=== PATIENT | female | born 1955 | race Caucasian/White ===

== ENCOUNTER 2018-04-22 15:14 | Observation (INO) ==
--- NOTE | 2018-04-22 15:58 | ED ---
HPI General Chief complaint: Recheck/Abnormal Lab/Rx Stated complaint: R arm and pain on R side of head Time Seen by Provider: 04/22/18 15:55 Source: patient Mode of arrival: ambulatory Limitations: no limitations History of Present Illness HPI narrative: 62-year-old female patient with history of Enlarged thyroid nodules, currently being investigated by primary care doctor and endocrinology, presents to the ER today because she states that she is having 2 days history of pain in her right upper back area, tingling down her right arm, and then this morning started having pain and tingling down her left arm, for which she had talked her primary care doctor. She states she also had a chest discomfort that lasted about a few minutes and then went away. She is not having chest discomfort right now. She states that her primary care doctor had evaluated her in the office, did not EKG on her and was concerned about EKG changes seen today that was not seen previously. Patient states that the doctor had sent her in to be evaluated further. Related Data Home Medications Medication Instructions Recorded Confirmed No Known Home Medications 04/22/18 04/22/18 Allergies Allergy/AdvReac Type Severity Reaction Status Date / Time codeine Allergy Intermediate abdominal Verified 04/22/18 15:53 pain Sulfa (Sulfonamide Allergy Intermediate Rash Verified 04/22/18 15:53 Antibiotics) Review of Systems ROS: all other systems reviewed are negative [facility] Medical History Medical History Enlarged thyroid gland (Acute) Surgical History Surgical History No history of previous surgery (Acute) Social History Social History Substance History: No History of Abuse Smoking Status: Never smoker How Often Do You Have a Drink Containing Alcohol: Never Recent Travel in [facility] within the Last 8 Weeks: No Recent Out of Country Travel within the Last 8 Weeks: No Immunization History Tetanus Immunization: Unsure Exam Narrative Exam Narrative: GENERAL: Well-developed elderly white female patient currently and no acute distress. Awake and oriented x3. SKIN: Focused skin assessment warm/dry. HEAD: Atraumatic. Normocephalic. EYES: Pupils equal and round. No scleral icterus. No injection or drainage. ENT: No nasal bleeding or discharge. Mucous membranes pink and moist. NECK: Trachea midline. No JVD. Supple. CARDIOVASCULAR: Regular rate and rhythm. No murmur appreciated.Pulses are present and equal bilaterally. RESPIRATORY: No accessory muscle use. Clear to auscultation. Breath sounds equal bilaterally. GASTROINTESTINAL: Abdomen soft, non-tender, nondistended. Hepatic and splenic margins not palpable. MUSCULOSKELETAL: No obvious deformities. No clubbing. No cyanosis. No edema. NEUROLOGICAL: Awake and alert. No obvious cranial nerve deficits. Motor grossly within normal limits. Normal speech. PSYCHIATRIC: Appropriate mood and affect; insight and judgment normal. Course Initial Documented Vital Signs Temperature 97.8 F 04/22/18 15:24 Pulse Rate 61 04/22/18 15:24 Respiratory Rate 18 04/22/18 15:24 Blood Pressure 135/60 04/22/18 15:24 Pulse Oximetry 96 04/22/18 15:24 Last Documented Vital Signs Temperature 97.8 F 04/22/18 15:24 Pulse Rate 57 L 04/22/18 15:56 Respiratory Rate 13 04/22/18 15:53 Blood Pressure 151/77 H 04/22/18 15:53 Pulse Oximetry 98 04/22/18 15:56 Medical Decision Making MDM Narrative Medical decision making narrative: Patient's EKG is significant for significant bradycardia. Lab work was otherwise fairly unremarkable. Chest x-ray was unremarkable as well. At this point, my plan would be to admit her to chest pain center for further evaluation. Medical Screen Exam Complete: Yes Emergency Medical Condition: Yes Differential Diagnosis Differential Diagnosis: Atypical chest pain versus angina versus muscular skeletal Lab Data Result diagrams: 04/22/18 16:20 04/22/18 16:20 Lab Results 04/22/18 04/22/18 04/22/18 Range/Units 16:20 16:20 16:20 WBC 5.9 (4.0-11.0) th/mm3 RBC 4.46 (4.00-5.30) mil/mm3 Hgb 14.0 (11.6-15.3) gm/dL Hct 41.1 (35.0-46.0) % MCV 92.1 (80.0-100.0) fL MCH 31.3 (27.0-34.0) pg MCHC 33.9 (32.0-36.0) % RDW 13.2 (11.6-17.2) % Plt Count 242 (150-450) th/mm3 MPV 7.6 (7.0-11.0) fL Neut % (Auto) 66.9 (16.0-70.0) % Lymph % (Auto) 25.0 (9.0-44.0) % Walker % (Auto) 6.9 (0.0-8.0) % Eos % (Auto) 0.9 (0.0-4.0) % Baso % (Auto) 0.3 (0.0-2.0) % Neut # (Auto) 3.9 (1.8-7.7) th/mm3 Lymph # (Auto) 1.5 (1.0-4.8) th/mm3 [place] # (Auto) 0.4 (0.0-0.9) th/mm3 Eos # (Auto) 0.1 (0.0-0.4) th/mm3 Baso # (Auto) 0.0 (0.0-0.2) th/mm3 WBC Differential . Differential Comment Auto diff final PT 10.4 (9.8-11.6) sec INR 1.0 Ratio APTT 27.3 (24.3-30.1) sec D-Dimer Quant (PE/DVT) Less than 0.19 (0.00-0.50) mg/L FEU Sodium 142 (136-145) meq/L Potassium 4.1 (3.5-5.1) meq/L Chloride 106 (98-107) meq/L Carbon Dioxide 26.6 (21.0-32.0) meq/L Anion Gap 9 (5-15) meq/L BUN 12 (7-18) mg/dL Creatinine 0.72 (0.50-1.00) mg/dL Estimated GFR 82 L (>89) mL/min Random Glucose 86 (74-106) mg/dL Calcium 8.4 L (8.5-10.1) mg/dL Total Bilirubin 0.8 (0.2-1.0) mg/dL AST 17 (15-37) U/L ALT 22 (10-53) U/L Alkaline Phosphatase 77 (45-117) U/L Troponin I Less than 0.02 L (0.02-0.05) ng/mL Total Protein 6.8 (6.4-8.2) g/dL Albumin 3.5 (3.4-5.0) g/dL TSH 0.639 (0.358-3.740) uIU/mL Free T4 0.90 (0.76-1.46) ng/dL Free T3 2.82 (2.18-3.98) pg/mL Imaging Data Attestation: I personally reviewed and interpreted this imaging study as follows : Radiologist's impression: Chest X-Ray 04/22/18 15:56 CONCLUSION: Density in the right cardiophrenic angle likely prominent fat pad. Atelectasis/ infiltrate cannot be excluded in the absence of prior studies. ECG Data Attestation: I personally reviewed and interpreted this ECG as follows: Interpretation: Sinus bradycardia at a rate of 50 bpm. No signs of acute ST elevations or depressions. Discharge Plan Discharge Disposition Patient Disposition: 30 Still Patient Discharge Condition Condition: Stable Discharge Details Anticipated Discharge Date: 04/22/18 Diagnosis: Atypical chest pain Physicians Team ED Provider: Aparna Hartman Primary Care Provider: UNKNOWN, Rxs /Orders / Referrals /Forms Prescriptions: No Action No Known Home Medications RF: 0 Discharge Interventions Interventions: Vital Signs Last Done: 04/22/18 15:53 Status ED Status: With Doctor
[2018-04-22 16:35] LABS: Baso % (Auto) 0.3 % (0.0-2.0); Eos # (Auto) 0.1 th/mm3 (0.0-0.4); Eos % (Auto) 0.9 % (0.0-4.0); Hematocrit 41.1 % (35.0-46.0); Lymph # (Auto) 1.5 th/mm3 (1.0-4.8); Mean Corpuscular HGB Conc 33.9 % (32.0-36.0); Mean Corpuscular Hemoglobin 31.3 pg (27.0-34.0); Mean Corpuscular Volume 92.1 fL (80.0-100.0); Mean Platelet Volume 7.6 fL (7.0-11.0); Mono # (Auto) 0.4 th/mm3 (0.0-0.9); Mono % (Auto) 6.9 % (0.0-8.0); Neut # (Auto) 3.9 th/mm3 (1.8-7.7); Neut % (Auto) 66.9 % (16.0-70.0); Platelet Count 242 th/mm3 (150-450); Red Blood Count 4.46 mil/mm3 (4.00-5.30); Red Cell Distribution Width 13.2 % (11.6-17.2); White Blood Count 5.9 th/mm3 (4.0-11.0)
[2018-04-22 16:48] LABS: Activated Partial Thrombo Time 27.3 sec (24.3-30.1); Prothrombin Time 10.4 sec (9.8-11.6)
[2018-04-22 17:04] LABS: Alanine Aminotransferase 22 U/L (10-53); Albumin 3.5 g/dL (3.4-5.0); Anion Gap 9 meq/L (5-15); Aspartate Aminotransferase 17 U/L (15-37); Blood Urea Nitrogen 12 mg/dL (7-18); Calcium 8.4 mg/dL (8.5-10.1); Carbon Dioxide 26.6 meq/L (21.0-32.0); Chloride 106 meq/L (98-107); Glomerular Filtration Rate 82 mL/min (>89); Glucose,Random 86 mg/dL (74-106); Potassium 4.1 meq/L (3.5-5.1); Sodium 142 meq/L (136-145)
[2018-04-22 17:14] LABS: Alkaline Phosphatase 77 U/L (45-117); Thyroid Stimulating Hormone 0.639 uIU/mL (0.358-3.740); Total Protein 6.8 g/dL (6.4-8.2); Triiodothyronine (T3) Free 2.82 pg/mL (2.18-3.98)
--- NOTE | 2018-04-22 17:34 | XR ---
EXAM DATE: 04/22/2018 3:56 PM EDT AGE/SEX: 62 years / Female INDICATIONS: Right sided chest, arm and jaw pain. CLINICAL DATA: This is the patient's initial encounter. Patient reports that signs and symptoms have been present for 2 days and indicates a pain score of 5/10. MEDICAL/SURGICAL HISTORY: None. Breast augmentation. COMPARISON: No prior exams available for comparison. FINDINGS: A single AP view of the chest demonstrates density noted right cardiophrenic angle. Left lung clear. Heart normal in size The cardiomediastinal contours are unremarkable. Osseous structures are intact. CONCLUSION: Density in the right cardiophrenic angle likely prominent fat pad. Atelectasis/infiltrate cannot be e xcluded in the absence of prior studies. Electronically signed by: Warren Beckett MD 04/22/2018 5:32 PM EDT
[2018-04-22 19:47] LABS: Creatine Kinase 65 U/L (26-192)
[2018-04-22 23:10] LABS: Creatine Kinase 91 U/L (26-192)
[2018-04-23 07:56] VITALS: RESP 18
--- NOTE | 2018-04-23 08:58 | ECG ---
Date Performed: 04/22/2018 Time Performed: 22:21:27 PTAGE: 62 years EKG: Sinus rhythm NORMAL ECG Since PREVIOUS TRACING , no significant change noted DOCTOR: Ashley Atkins Interpretating Date/Time 04/23/2018 08:58:20
--- NOTE | 2018-04-23 09:03 | ECG ---
Date Performed: 04/22/2018 Time Performed: 18:20:15 PTAGE: 62 years EKG: SINUS BRADYCARDIA BORDERLINE ECG Since PREVIOUS TRACING , no significant change noted PREVIOUS TRACIN04/22/2018 15.45 DOCTOR: Ashley Atkins Interpretating Date/Time 04/23/2018 09:02:13
--- NOTE | 2018-04-23 09:03 | ECG ---
Date Performed: 04/22/2018 Time Performed: 15:45:25 PTAGE: 62 years EKG: SINUS BRADYCARDIA BORDERLINE ECG Since PREVIOUS TRACING , no significant change noted PREVIOUS TRACIN06/09/2013 18.18 DOCTOR: Ashley Atkins Interpretating Date/Time 04/23/2018 09:01:46
--- NOTE | 2018-04-23 10:25 | CT ---
EXAM DATE: 04/23/2018 9:45 AM EDT AGE/SEX: 62 years / Female INDICATIONS: Headache CLINICAL DATA: This is the patient's initial encounter. Patient reports that signs and symptoms have been present for 2 days and indicates a pain score of 4/10. MEDICAL/SURGICAL HISTORY: None. None. RADIATION DOSE: 56.35 CTDI (mGy) COMPARISON: No prior exams available for comparison. TECHNIQUE: CT of the head without contrast. Using automated exposure control and adjustment of the mA and/or kV according to patient size, radiation dose was kept as low as reasonably achievable to ob tain optimal diagnostic quality images. DICOM format image data is available electronically for revi ew and comparison. FINDINGS: Cerebrum: The ventricles are normal for age. No evidence of midline shift, mass lesion, hemorrhage or acute infarction. No extraaxial fluid collections are seen. Posterior Fossa: The cerebellum and brainstem are intact. The 4th ventricle is midline. The cerebe llopontine angle is unremarkable. Extracranial: The visualized portion of the orbits is intact. Skull: The calvaria is intact. No evidence of skull fracture. CONCLUSION: 1. Negative CT Head non contrast. . Electronically signed by: Khai Duvall MD 04/23/2018 10:23 AM EDT
--- NOTE | 2018-04-23 10:59 | P.HPCA ---
History of Present Illness Primary Care Physician: UNKNOWN Chief Complaint: Headache, right arm paresthesias History of Present Illness: This is a 62-year-old female that presents to ED via private vehicle at the request of her primary care physician with initial complaint of having discomfort in her right shoulder for 2 days basic constantly. Numbness associated with any change in position. Then yesterday she woke up with numbness tingling weakness in her right arm and headache. The symptoms lasted about 30 minutes. She went to her PCP and was advised to come to the ED to be evaluated for a TIA. Initially has not been discussing chest discomfort and first time questioning she denied having chest pain but then after further questioning she did have a discomfort but she states is in the right side of her chest when she was having the other issues. Cannot recall prior cardiac workup. Cannot recall prior neurologic workup. States that her PCP is evaluating enlarged thyroid nodules at this time. Currently has no symptoms. States she has history of enlarged thyroid nodules that are being evaluated by PCP and endocrinology. Denies hypertension, hyperlipidemia, diabetes, and known CAD. She does not smoke. Cannot recall family history of CAD. - Diagnosis (1) Atypical chest pain (2) Paresthesias (3) Thyroid nodule Review of Systems General: Patient denies fevers, chills, and recent travel. HEENT: Patient denies headache, sore throat, difficulty swallowing. Cardiovascular: Has the chest discomfort as mentioned above. Denies sensation of heart beating rapidly or irregularly. No syncope. Denies diaphoresis. Respiratory: Denies shortness of breath or inspirational chest discomfort. Denies coughing wheezing or hemoptysis. GI: Patient denies nausea, vomiting, diarrhea, abdominal pain, bloody stools. Musculoskeletal: Patient denies joint pain or edema. Denies calf pain or edema. Neurovascular: Planes of right arm numbness tingling and weakness for about 30 minutes. Also had a right sided headache for also 30 minutes. Denies visual changes. Denies any difficulty in speech. Denies seizure activity. Denies any recent head trauma. Denies fecal urinary incontinence. Denies neck pain or stiffness. Endocrine: Denies polyuria and polydipsia. Hematologic: Denies easy bruising. Skin: Denies rash or itching. PMFSH - History History Provided By: Patient - Medical History Medical History: Medical History (Last Reviewed 04/22/18 @ 15:57 by Aparna Hartman MD) Enlarged thyroid gland - Surgical History Surgical History: Surgical History (Last Reviewed 04/22/18 @ 15:57 by Aparna Hartman MD) No history of previous surgery - Tobacco History Second Hand Smoke Exposure: No Tobacco Use In Past 30 Days: No Smoking Status: Never smoker - Alcohol History How Often Do You Have a Drink Containing Alcohol: Monthly or less - Substance Use History Substance History: No History of Abuse - Travel History Recent Travel in the [place] Within the Last 8 Weeks: No Recent Travel Out of the Country Within the Last 8 Weeks: No - Immunization History Tetanus Immunization: Unsure Medications and Allergies Active Medications: Active Medications Sodium Chloride (Ns Flush) 2 ml IV.FLUSH UNSCH PRN PRN Reason: FLUSH AFTER USING IV ACCESS Sodium Chloride (Ns Flush) 2 ml IV.FLUSH BID YENNY Last Admin: 04/23/18 09:13 Dose: 2 ml Sodium Chloride (Ns Flush) 2 ml IV.FLUSH PRN PRN PRN Reason: FLUSH AFTER USING IV ACCESS Allergies Allergy/AdvReac Type Severity Reaction Status Date / Time codeine Allergy Intermediate abdominal Verified 04/22/18 15:53 pain Sulfa (Sulfonamide Allergy Intermediate Rash Verified 04/22/18 15:53 Antibiotics) Home Medications Medication Instructions Recorded Confirmed Type No Known Home Medications 04/22/18 04/22/18 History Exam Vital signs: Vital Signs 04/22/18 15:24 04/22/18 15:53 04/22/18 15:56 Temperature 97.8 F Pulse Rate 61 64 57 L Respiratory Rate 18 13 Blood Pressure 135/60 151/77 H Pulse Oximetry 96 96 98 04/22/18 17:43 04/22/18 20:00 04/23/18 00:00 Temperature 98.3 F 98.3 F Pulse Rate 69 59 L 59 L Respiratory Rate 18 16 16 Blood Pressure 139/62 107/54 L 107/54 L Pulse Oximetry 100 97 04/23/18 05:10 04/23/18 07:55 04/23/18 08:00 Temperature 97.7 F 97.7 F Pulse Rate 52 L 55 L 53 L Respiratory Rate 16 18 Blood Pressure 107/65 115/56 L Pulse Oximetry 94 L 04/23/18 09:00 Temperature Pulse Rate 53 L Respiratory Rate Blood Pressure Pulse Oximetry Intake & Output 04/22/18 04/23/18 04/23/18 18:59 06:59 18:59 Weight 79.379 kg 79.379 kg Other: # Voids 2 Date of Last Bowel Movement 04/22/18 04/23/18 Weight On Admission 79.379 kg Narrative: GENERAL: This is a well-nourished, well-developed patient, in no apparent distress. Patient speaks in clear complete sentences. Patient is pleasant. HEENT: Head is atraumatic and normocephalic. Neck is supple without lymphadenopathy and trachea is midline. No JVD or carotid bruits. CARDIOVASCULAR: Regular rate and rhythm without murmurs, gallops, or rubs. RESPIRATORY: Clear to auscultation. Breath sounds equal bilaterally. No wheezes , rales, or rhonchi. Chest wall is nontender. No use of accessory muscles. GASTROINTESTINAL: Abdomen is nontender, nondistended. Abdomen soft. No obvious pulsatile mass or bruit. No CVA tenderness. Strong femoral pulses bilaterally. Normal bowel sounds in all quadrants. MUSCULOSKELETAL: Patient is moving upper and lower extremities freely. No calf tenderness or edema, no Homans sign. Strong pulses in upper and lower extremities. NEUROLOGICAL: Patient is alert and oriented. Cranial nerves 2-12 are grossly intact. 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 No focal deficits and speech is clear. SKIN: No rash and turgor is normal. Results 04/22/18 16:20 04/22/18 16:20 Cardiac Enzymes 04/22/18 04/22/18 04/22/18 Range/Units 16:20 18:20 22:04 AST 17 (15-37) U/L Troponin I Less than 0.02 L Less than 0.02 L Less than 0.02 L (0.02-0.05) ng/mL Coagulation 04/22/18 Range/Units 16:20 PT 10.4 (9.8-11.6) sec APTT 27.3 (24.3-30.1) sec CBC 04/22/18 Range/Units 16:20 WBC 5.9 (4.0-11.0) th/mm3 RBC 4.46 (4.00-5.30) mil/mm3 Hgb 14.0 (11.6-15.3) gm/dL Hct 41.1 (35.0-46.0) % Plt Count 242 (150-450) th/mm3 Neut # (Auto) 3.9 (1.8-7.7) th/mm3 Lymph # (Auto) 1.5 (1.0-4.8) th/mm3 [place] # (Auto) 0.4 (0.0-0.9) th/mm3 Eos # (Auto) 0.1 (0.0-0.4) th/mm3 Baso # (Auto) 0.0 (0.0-0.2) th/mm3 Comprehensive Metabolic Panel 04/22/18 Range/Units 16:20 Sodium 142 (136-145) meq/L Potassium 4.1 (3.5-5.1) meq/L Chloride 106 (98-107) meq/L Carbon Dioxide 26.6 (21.0-32.0) meq/L BUN 12 (7-18) mg/dL Creatinine 0.72 (0.50-1.00) mg/dL Calcium 8.4 L (8.5-10.1) mg/dL AST 17 (15-37) U/L ALT 22 (10-53) U/L Alkaline Phosphatase 77 (45-117) U/L Total Protein 6.8 (6.4-8.2) g/dL Albumin 3.5 (3.4-5.0) g/dL Intake and Output 04/22/18 04/23/18 04/23/18 22:59 06:59 14:59 Other: # Voids 2 Date of Last Bowel Movement 04/22/18 04/23/18 Weight 79.379 kg 79.379 kg Weight On Admission 79.379 kg - Imaging and Cardiology Imaging: Impressions Chest X-Ray 04/22/18 15:56 CONCLUSION: Density in the right cardiophrenic angle likely prominent fat pad. Atelectasis/ infiltrate cannot be excluded in the absence of prior studies. Head CT 04/23/18 00:00 CONCLUSION: 1. Negative CT Head non contrast. . EKG interpretations - EKG EKG shows: sinus rhythm (EKGs are sinus rhythm without significant ST segment depressions or elevations.) Caprini VTE Risk Assessment Caprini VTE Risk Assessment: Moderate/High Risk (score >= 2) Caprini Risk Assessment Model: Point Value = 1 Point Value = 2 Point Value = 3 Point Value = 5 Age 41-60 Minor surgery BMI > 25 kg/m2 Swollen legs Varicose veins or History of unexplained or recurrent spontaneous Oral contraceptives or hormone replacement Sepsis (< 1 month) Serious lung disease, including pneumonia (< 1 month) Abnormal pulmonary function Acute myocardial infarction Congestive heart failure (< 1 month) History of inflammatory bowel disease Medical patient at bed rest Age 61-74 Arthroscopic surgery Major open surgery (> 45 min) Laparoscopic surgery (> 45 min) Malignancy Confined to bed (> 72 hours) Immobilizing plaster cast Central venous access Age >= 75 History of VTE Family history of VTE Factor V Leiden Prothrombin [id number] Lupus anticoagulant Anticardiolipin antibodies Elevated serum homocysteine Heparin-induced thrombocytopenia Other congenital or acquired thrombophilia Stroke (< 1 month) Elective arthroplasty Hip, pelvis, or leg fracture Acute spinal cord injury (< 1 month) Prophylaxis Regimen: Total Risk Factor Score Risk Level Prophylaxis Regimen 0-1 Low Early ambulation 2 Moderate Order ONE of the following: *Sequential Compression Device (SCD) *Heparin 5000 units SQ BID 3-4 Higher Order ONE of the following medications: *Heparin 5000 units SQ TID *Enoxaparin/Lovenox 40 mg SQ daily (WT < 150 kg, CrCl > 30 mL/min) *Enoxaparin/Lovenox 30 mg SQ daily (WT < 150 kg, CrCl > 10-29 mL/min) *Enoxaparin/Lovenox 30 mg SQ BID (WT < 150 kg, CrCl > 30 mL/min) AND/OR *Sequential Compression Device (SCD) 5 or more Highest Order ONE of the following medications: *Heparin 5000 units SQ TID (Preferred with Epidurals) *Enoxaparin/Lovenox 40 mg SQ daily (WT < 150 kg, CrCl > 30 mL/min) *Enoxaparin/Lovenox 30 mg SQ daily (WT < 150 kg, CrCl > 10-29 mL/min) *Enoxaparin/Lovenox 30 mg SQ BID (WT < 150 kg, CrCl > 30 mL/min) AND *Sequential Compression Device (SCD) Assessment and Plan - Assessment (1) Atypical chest pain Code(s): R07.89 - Other chest pain Status: Acute (2) Paresthesias Code(s): R20.2 - Paresthesia of skin Status: Acute (3) Thyroid nodule Code(s): E04.1 - Nontoxic single thyroid nodule Status: Acute - Plan * Paresthesias: Her symptoms lasted about [address] brain has been ordered and chest pain center and is pending. If negative she will need to follow-up with her PCP for further evaluation. May need cardiology referral for 2D echo, Holter monitor, and carotid ultrasound as the patient states her PCP was concerned about a TIA. * Atypical chest pain: We will get a Jourdan protocol ETT and likely be discharged home if stress test is nonischemic. 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 Patient is stable at this time. She is agreeable to this plan. Patient should return to ED for interval issues. H&P: Quality - VTE Deep Vein Thrombosis/Pulmonary Embolism Present on Admission: No
[2018-04-23] MEDS ORDERED: Aspirin 325 MG Tablet PO SCH (11:00)
[2018-04-23 12:24] VITALS: BP 134/67; PULSE 55; TEMP 97.5; O2SAT 97
[2018-04-23] MEDS ORDERED: Regadenoson Inj 0.4 MG/5 ML Syringe IV.PUSH ONE (13:39)
--- NOTE | 2018-04-23 14:49 | NM ---
EXAM DATE: 04/23/2018 1:31 PM EDT AGE/SEX: 62 years / Female INDICATIONS:Angina. . CLINICAL DATA: This is the patient's initial encounter. Patient reports that signs and symptoms have been present for 1 day and indicates a pain score of 1/10. MEDICAL/SURGICAL HISTORY: None. None. COMPARISON: No prior exams available for comparison. DOSE: 8.2 mCi Tc 99m Myoview at rest 25.8 mCi [id number] at stress 0.4 mg Lexiscan STRESS SYMPTOMS: Dyspnea, head pressure, abdominal pressure and chest tightness. EJECTION FRACTION: 66 % TECHNIQUE: The patient underwent pharmacologic stress with infusion of prescribed dose. Continuous ECG tracing was monitored during stress. Gated SPECT imaging was performed after stress and conventi onal SPECT imaging was performed at rest. The examination was performed on a SPECT/CT scanner, both attenuation and non-corrected datasets were reviewed. FINDINGS: Distribution: The maximum perfused segment at stress is in the anterior wall. Perfusion Study: The pattern of perfusion at stress is within normal limits. There is a summed st ress score of 1 Gated Study: There are intact wall motion and wall thickening without hypokinetic or dyskinetic segm ents. The ejection fraction is calculated at 66%. RISK CATEGORY: Low (<1% Annual Motality Rate) CONCLUSION: 1. No fixed or reversible wall defect to suggest ischemia or infarction. 2. Normal wall motion and calculated ejection fraction. Electronically signed by: Carroll Peguero MD 04/23/2018 2:47 PM EDT
[2018-04-23] MEDS ORDERED: Acetaminophen 500 MG Tablet PO PRN (15:09)
--- NOTE | 2018-04-23 16:31 | TR ---
Date Performed: 04/23/2018 Time Performed: 13:42:37 DOCTOR: Ashley Atkins DRUG LIST: CLINICAL HISTORY: REASON FOR TEST: REASON FOR ENDING: OBSERVATION: CONCLUSION: Lexiscan stress test was performed under standard four minute protocol. Radionuclid e was injected one minute prior to ending the test. No electrocardiographic abormalities were present to suggest ischemia. Nuclear imaging and interpretation are pending. COMMENTS: Lexiscan stress test was performed under standard four minute protocol. Radionuclide was injected one minute prior to ending the test. No electrocardiographic abormalities were present t o suggest ischemia. Nuclear imaging and interpretation are pending.
== END 2018-04-23 16:13 | disposition home or self-care (01) ==
LOC: NEPC 15:14 → NEDA 15:14 → NEPFCDU 18:41
PROVIDERS: ADMIT Internal Medicine Cardiovascular Disease; ATTEND Internal Medicine Cardiovascular Disease
DX: R07.89 Other chest pain; R53.1 Weakness; E04.2 Nontoxic multinodular goiter; Z88.5 Allergy status to narcotic agent; R94.31 Abnormal electrocardiogram [ECG] [EKG]; Z88.2 Allergy status to sulfonamides